=== PATIENT | female | born 1990 ===

== ENCOUNTER 2021-10-25 20:09 | Emergency (ER) | payer SELFPAY ==
--- NOTE | ~2021-10-25 | XR_ITS ---
EXAMINATION: XR chest 2V DATE: 10/25/2021 20:39 INDICATION: Left chest pain. Nausea. TECHNIQUE: Frontal and lateral views of the chest were obtained. COMPARISON: None. FINDINGS: The chest demonstrates clear lungs without pneumonia, pleural effusion, or pneumothorax. Th e heart size is normal. IMPRESSION: 1. No acute cardiopulmonary disease. Reviewed, dictated and finalized at location A. [employer] DIRECTOR
[2021-10-25 20:17] VITALS: BP 119/81; PULSE 80; RESP 19; TEMP 36.7; O2SAT 100
[2021-10-25 20:28] LABS: Basophils Absolute Auto 0.1 K/mm3 (0.0-0.1); Basophils Percent Auto 0.7 % (0.2-1.2); Eosinophils Absolute Auto 0.1 K/mm3 (0-0.3); Eosinophils Percent Auto 1.9 % (0-4.4); Hematocrit 40.7 % (37.0-47.0); Hemoglobin 13.5 g/dL (12.0-15.0); Immature Granulocyte Absolute 0.02 K/mm3 (0.00-0.031); Immature Granulocyte Percent A 0.3 % (0-0.5); Lymphocytes Absolute Auto 2.33 K/mm3 (0.9-3.2); Lymphocytes Percent Auto 30.9 % (18.3-44.2); Mean Corpuscular HGB Conc 33.2 g/dl (32-36); Mean Corpuscular Hemoglobin 28.7 pg (26-34); Mean Corpuscular Volume 86.4 fl (80-100); Mean Platelet Volume 10.1 fl (7.4-10.4); Monocytes Absolute Auto 0.5 K/mm3 (0.1-0.6); Monocytes Percent Auto 7.2 % (2.6-8.5); Neutrophils Absolute Auto 4.5 K/mm3 (1.3-6.7); Platelet Count Result 280 k/mm3 (150-375); Red Blood Count 4.71 M/mm3 (4.2-5.4); Red Cell Distribution Width 12.8 % (11.5-14.5); White Blood Count 7.5 K/mm3 (4.5-10.0)
[2021-10-25 20:39] LABS: Alanine Aminotransferase 17 U/L (4-35); Albumin Level 4.7 g/dL (3.5-5.1); Alkaline Phosphatase 37 U/L (38-126); Anion Gap 7 mmol/L (8-16); Aspartate Amino Transferase 27 U/L (14-36); Bilirubin,Total 0.2 mg/dL (0.2-1.3); Blood Urea Nitrogen 16 mg/dL (7-17); Calcium 9.5 mg/dL (8.4-10.2); Carbon Dioxide 26 mmol/L (22-30); Chloride 102 mmol/L (98-107); Estimated CRCL calculation 77 ml/min; Estimated Glomerular Filt Rate > 60; Glucose 115 mg/dL (65-110); Lipase 89 U/L (23-300); Potassium 4.1 mmol/L (3.4-5.0); Sodium 135 mmol/L (137-145)
[2021-10-25 20:50] LABS: Prothrombin Time 13.3 Seconds (11.1-14.7)
[2021-10-25 20:51] LABS: Partial Thromboplastin Time 24.7 SECONDS (22.3-36.8); Troponin I < 0.012 ng/mL (0.000-0.034)
--- NOTE | 2021-10-25 23:29 | PC.NURSE ---
Patient states she is wanting to leave. Patient states she has to go home to her kids. Patient advised of risks of leaving before being seen by a provider, patient still states she is leaving. Patient left ED with a steady gait with her belongings.
== END 2021-10-25 23:48 | disposition left against medical advice (07) ==
LOC: ANHED 23:39
PROVIDERS: Emergency Provider Emergency Medicine
DX: R07.9 Chest pain, unspecified (principal)
CPT/HCPCS: 36415; 71046; 80053; 83690; 84484; 85025; 85610; 85730; 99199